=== PATIENT | male | born 1965 | race Caucasian/White ===

== ENCOUNTER 2020-04-19 14:07 | Inpatient (IN) | payer OTHER ==
[2020-04-19 15:54] VITALS: BMI 36.7
[2020-04-19] MEDS ORDERED: MAGNESIUM CITRATE 300 ML BOTTLE PO PRN (15:54)
[2020-04-19] MEDS ORDERED: MENTHOL/PHENOL 1 EACH UD MM PRN (15:54)
[2020-04-19] MEDS ORDERED: MAG HYDROX/AL HYDROX/SIMETH 30 ML UNIT-DOSE CUP PO PRN (15:54)
[2020-04-19] MEDS ORDERED: BISMUTH SUBSALICYLATE 524 MG/30 ML UD PO PRN (15:54)
[2020-04-19] MEDS ORDERED: MAGNESIUM HYDROX 2400MG/30ML ORAL SUSPENSION 30 ML CUP PO PRN (15:54)
[2020-04-19] MEDS ORDERED: METHADONE HCL 10 MG TABLET (FOR DETOX USE ONLY) PO ONE ×2 (15:54→17:00)
[2020-04-19] MEDS ORDERED: NICOTINE POLACRILEX 2 MG GUM BUC PRN (15:54)
[2020-04-19] MEDS ORDERED: ACETAMINOPHEN 325 MG TABLET (FP) PO PRN ×2 (15:54)
[2020-04-19 17:01] LABS: HEMATOCRIT 43.8 % (35.4-49); HEMOGLOBIN 14.4 GM/dL (11.7-16.9); MCH 28.6 pg (25.7-33.7); MCHC 32.8 g/dl (32.0-35.9); MEAN CELL VOLUME 87.2 fl (80-96); MEAN PLT VOLUME 7.3 fl (7.5-11.1); PLATELET COUNT 317 K/MM3 (134-434); RBC 5.02 M/mm3 (4.00-5.60); RDW 14.3 % (11.9-15.9); WHITE BLOOD COUNT 7.8 K/mm3 (4.0-10.0)
[2020-04-19 17:03] LABS: POTASSIUM 4.7 mmol/L (3.5-5.1)
[2020-04-19 17:05] LABS: ALBUMIN 3.8 g/dl (3.4-5.0); CALCIUM 9.4 mg/dL (8.5-10.1)
[2020-04-19 17:06] LABS: BLOOD UREA NITROGEN 13.3 mg/dL (7-18)
[2020-04-19 17:09] LABS: CREATININE 0.9 mg/dL (0.55-1.3)
[2020-04-19 17:10] LABS: BILIRUBIN,TOTAL 0.5 mg/dL (0.2-1); TOT PROT 8.4 g/dl (6.4-8.2)
[2020-04-19] MEDS: hydrOXYzine PAMOATE 25 MG CAPSULE (FP) PO SCH ×2 (17:45→22:43)
[2020-04-19] MEDS: MELATONIN 5 MG TABLETS PO SCH (22:43)
[2020-04-19] MEDS: THIAMINE HCL 100 MG TABLET (FP) PO SCH (22:43)
[2020-04-20] MEDS: hydrOXYzine PAMOATE 25 MG CAPSULE (FP) PO SCH ×5 (05:27→22:20)
[2020-04-20] MEDS ORDERED: METHADONE HCL 5 MG TABLET (FOR DETOX USE ONLY) ONE (08:59)
[2020-04-20] MEDS ORDERED: METHADONE HCL 10 MG TABLET (FOR DETOX USE ONLY) ONE (09:00)
[2020-04-20] MEDS ORDERED: METHADONE (DETOX) 20 MG, METHADONE (DETOX) 5 MG PO ONE (10:00)
[2020-04-20] MEDS: NICOTINE 7 MG/24 HOURS TOPICAL PATCH TD SCH (11:09)
[2020-04-20] MEDS: PRENATAL VITAMINS W/ FOLIC ACID TABLET (FP) PO SCH (11:09)
[2020-04-20] MEDS: IBUPROFEN 400 MG TABLET (FP) PO PRN (17:41)
[2020-04-20] MEDS: METHOCARBAMOL 500 MG TABLET PO PRN (22:17)
[2020-04-20] MEDS: cloNIDine HCL 0.1 MG TABLET PO PRN (22:19)
[2020-04-20] MEDS: THIAMINE HCL 100 MG TABLET (FP) PO SCH (22:20)
[2020-04-20] MEDS: MELATONIN 5 MG TABLETS PO SCH (22:20)
[2020-04-21] MEDS: hydrOXYzine PAMOATE 25 MG CAPSULE (FP) PO SCH ×5 (05:10→22:43)
[2020-04-21] MEDS: diazePAM 5 MG TABLET PO PRN ×2 (05:11→17:13)
[2020-04-21] MEDS: ONDANSETRON *ODT* 4 MG TABLET SL PRN ×2 (08:34→15:44)
[2020-04-21] MEDS ORDERED: METHADONE HCL 10 MG TABLET (FOR DETOX USE ONLY) PO ONE (10:00)
[2020-04-21] MEDS ORDERED: TRIMETHOBENZAMIDE HCL 200MG/2ML INJ IM ONE (10:58)
[2020-04-21] MEDS: PRENATAL VITAMINS W/ FOLIC ACID TABLET (FP) PO SCH (11:28)
[2020-04-21] MEDS: NICOTINE 7 MG/24 HOURS TOPICAL PATCH TD SCH (11:28)
[2020-04-21] MEDS: METHOCARBAMOL 500 MG TABLET PO PRN (13:50)
[2020-04-21] MEDS: IBUPROFEN 400 MG TABLET (FP) PO PRN (13:50)
[2020-04-21] MEDS: cloNIDine HCL 0.1 MG TABLET PO PRN (22:39)
[2020-04-21] MEDS: MELATONIN 5 MG TABLETS PO SCH (22:43)
[2020-04-21] MEDS: THIAMINE HCL 100 MG TABLET (FP) PO SCH (22:44)
[2020-04-22] MEDS: hydrOXYzine PAMOATE 25 MG CAPSULE (FP) PO SCH ×5 (06:07→22:47)
[2020-04-22] MEDS: diazePAM 5 MG TABLET PO PRN ×2 (06:08→22:46)
[2020-04-22] MEDS ORDERED: METHADONE HCL 10 MG TABLET (FOR DETOX USE ONLY) ONE (09:04)
[2020-04-22] MEDS ORDERED: METHADONE HCL 5 MG TABLET (FOR DETOX USE ONLY) ONE (09:04)
[2020-04-22] MEDS ORDERED: METHADONE (DETOX) 10 MG, METHADONE (DETOX) 5 MG PO ONE (10:00)
[2020-04-22] MEDS: PRENATAL VITAMINS W/ FOLIC ACID TABLET (FP) PO SCH (10:29)
[2020-04-22] MEDS: NICOTINE 7 MG/24 HOURS TOPICAL PATCH TD SCH (10:29)
[2020-04-22] MEDS: TRIMETHOBENZAMIDE HCL 200MG/2ML INJ IM PRN (20:48)
[2020-04-22] MEDS: MELATONIN 5 MG TABLETS PO SCH (22:47)
[2020-04-22] MEDS: THIAMINE HCL 100 MG TABLET (FP) PO SCH (22:47)
[2020-04-23] MEDS: hydrOXYzine PAMOATE 25 MG CAPSULE (FP) PO SCH ×5 (07:20→22:51)
[2020-04-23] MEDS ORDERED: METHADONE HCL 10 MG TABLET (FOR DETOX USE ONLY) PO ONE (10:00)
[2020-04-23] MEDS: PRENATAL VITAMINS W/ FOLIC ACID TABLET (FP) PO SCH (10:26)
[2020-04-23] MEDS: NICOTINE 7 MG/24 HOURS TOPICAL PATCH TD SCH (10:26)
[2020-04-23] MEDS: METHOCARBAMOL 500 MG TABLET PO PRN (12:37)
[2020-04-23] MEDS: ONDANSETRON *ODT* 4 MG TABLET SL PRN ×2 (14:07→21:31)
[2020-04-23] MEDS ORDERED: TRIMETHOBENZAMIDE HCL 200MG/2ML INJ IM PRN (14:12)
[2020-04-23] MEDS: TRIMETHOBENZAMIDE HCL 200MG/2ML INJ IM PRN (15:23)
[2020-04-23] MEDS: MELATONIN 5 MG TABLETS PO SCH (22:51)
[2020-04-23] MEDS: THIAMINE HCL 100 MG TABLET (FP) PO SCH (22:51)
[2020-04-23] MEDS ORDERED: diazePAM 5 MG TABLET PO ONE (23:00)
[2020-04-24] MEDS: METHOCARBAMOL 500 MG TABLET PO PRN (03:39)
[2020-04-24] MEDS: hydrOXYzine PAMOATE 25 MG CAPSULE (FP) PO SCH ×2 (06:00→10:28)
[2020-04-24] MEDS ORDERED: METHADONE HCL 5 MG TABLET (FOR DETOX USE ONLY) PO ONE (06:00)
[2020-04-24] MEDS: NICOTINE 7 MG/24 HOURS TOPICAL PATCH TD SCH (10:29)
[2020-04-24] MEDS: PRENATAL VITAMINS W/ FOLIC ACID TABLET (FP) PO SCH (10:29)
[2020-04-24 13:16] VITALS: BP 136/85; PULSE 87; TEMP 97.5
== END 2020-04-24 13:12 | disposition other institution (70) | DRG 774 ==
LOC: YASAS 14:07 → Y6N 15:37
PROVIDERS: ADMIT Allergy & Immunology; ATTEND Allergy & Immunology
PROC: HZ2ZZZZ Detoxification Services for Substance Abuse Treatment (ICD-10-PCS; principal; 2020-04-19)
DX: F10.230 Alcohol dependence with withdrawal, uncomplicated (principal); F14.20 Cocaine dependence, uncomplicated; F17.210 Nicotine dependence, cigarettes, uncomplicated; R00.0 Tachycardia, unspecified; R73.9 Hyperglycemia, unspecified; R25.1 Tremor, unspecified; S09.90XA Unspecified injury of head, initial encounter; S01.01XA Laceration without foreign body of scalp, initial encounter; W07.XXXA Fall from chair, initial encounter; Y93.89 Activity, other specified; Y92.238 Other place in hospital as the place of occurrence of the external cause
CPT/HCPCS: 36415; 80053; 82947; 85027; 86780; 93005; 93010; C9803; J0735; Q0162; U0003

== ENCOUNTER 2020-04-23 22:29 | Emergency (ER) | payer OTHER ==
[2020-04-23 23:14] VITALS: BP 147/94; PULSE 100; TEMP 98.1; BMI 35.6
[2020-04-23] MEDS ORDERED: DIPHTH,PERTUSS(ACELL),TET 0.5 ML DISP.SYRIN IM ONE ×2 (23:19→23:38)
[2020-04-23] MEDS ORDERED: LIDOCAINE HCL 1%, 10 MG/ML (50 mL VIAL) SQ ONE (23:35)
[2020-04-23] MEDS ORDERED: LIDOCAINE HCL 1%, 10 MG/ML (20ML VIAL) ONE (23:38)
[2020-04-24] MEDS ORDERED: ACETAMINOPHEN 325 MG TABLET (FP) PO ONE (00:14)
[2020-04-24] MEDS ORDERED: BACITRACIN 15 GM TUBE TOPICAL OINTMENT TP ONE (00:28)
[2020-04-24] MEDS ORDERED: BACITRACIN 0.9 GM PACKET ONE (00:30)
[2020-04-24] MEDS ORDERED: ACETAMINOPHEN 325 MG TABLET (FP) ONE (00:40)
== END 2020-04-24 03:01 | disposition home or self-care (01) ==
LOC: JER 22:29
PROC: 3E0234Z Introduction of Serum, Toxoid and Vaccine into Muscle, Percutaneous Approach (ICD-10-PCS; principal; 2020-04-23)
PROC: 0HQ0XZZ Repair Scalp Skin, External Approach (ICD-10-PCS; principal; 2020-04-23)
DX: S01.01XA Laceration without foreign body of scalp, initial encounter (principal); W07.XXXA Fall from chair, initial encounter; W22.8XXA Striking against or struck by other objects, initial encounter
CPT/HCPCS: 70450-TC; 72125-TC; 90715; 99284-25

== ENCOUNTER 2020-04-24 13:33 | Inpatient (IN) | payer OTHER ==
[2020-04-24] MEDS ORDERED: ACETAMINOPHEN 325 MG TABLET (FP) PO PRN (15:14)
[2020-04-24] MEDS ORDERED: guaiFENesin 200 MG/10 ML 10 ML UNIT-DOSE CUPS PO PRN (15:14)
[2020-04-24] MEDS ORDERED: IBUPROFEN 400 MG TABLET (FP) PO PRN (15:14)
[2020-04-24] MEDS ORDERED: LOPERAMIDE HCL 2 MG CAPSULE PO PRN (15:14)
[2020-04-24] MEDS ORDERED: MAG HYDROX/AL HYDROX/SIMETH 30 ML UNIT-DOSE CUP PO PRN (15:14)
[2020-04-24] MEDS ORDERED: MAGNESIUM CITRATE 300 ML BOTTLE PO PRN (15:14)
[2020-04-24] MEDS ORDERED: P-EPHED 60MG/TRIPROLIDI 2.5MG TABLET PO PRN (15:14)
[2020-04-24] MEDS ORDERED: MENTHOL/PHENOL 1 EACH UD MM PRN (15:14)
[2020-04-24] MEDS ORDERED: NICOTINE POLACRILEX 2 MG GUM BUC PRN (15:14)
[2020-04-24] MEDS ORDERED: MAGNESIUM HYDROX 2400MG/30ML ORAL SUSPENSION 30 ML CUP PO PRN (15:14)
[2020-04-24] MEDS: hydrOXYzine PAMOATE 25 MG CAPSULE (FP) PO PRN ×2 (16:08→21:31)
[2020-04-24] MEDS: METHOCARBAMOL 500 MG TABLET PO SCH ×2 (17:57→21:31)
[2020-04-24] MEDS: MELATONIN 5 MG TABLETS PO SCH (21:30)
[2020-04-24] MEDS: THIAMINE HCL 100 MG TABLET (FP) PO SCH (21:31)
[2020-04-25] MEDS ORDERED: ONDANSETRON *ODT* 4 MG TABLET SL PRN (06:17)
[2020-04-25] MEDS ORDERED: ROCURONIUM BROMIDE 100 MG/10 ML VIAL ONE (07:47)
[2020-04-25] MEDS ORDERED: LIDOCAINE HCL/PF 2% SDV 5ML VIAL ONE (07:47)
[2020-04-25] MEDS ORDERED: EPHEDRINE SULFATE/0.9% NACL/PF 50 MG/10 ML SYRINGE NR ONE (07:47)
[2020-04-25] MEDS ORDERED: ePHEDrine SULFATE 50 MG/1 ML AMPULE ONE (07:47)
[2020-04-25] MEDS ORDERED: GLYCOPYRROLATE 0.2 MG/1 ML VIAL ONE (07:47)
[2020-04-25] MEDS ORDERED: PROPOFOL 20 ML ONE ×3 (07:47)
[2020-04-25] MEDS ORDERED: MIDAZOLAM HCL 2 MG/2 ML SINGLE DOSE VIAL ONE (07:47)
[2020-04-25] MEDS ORDERED: LIDOCAINE HCL 2% JELLY (5 ML/TUBE) ONE (07:56)
[2020-04-25] MEDS ORDERED: HYDROmorphone HCl 2 MG/ML VIAL ONE (08:19)
[2020-04-25] MEDS ORDERED: ONDANSETRON 4 MG/2 ML VIAL IM ONE (09:21)
[2020-04-25] MEDS: METHOCARBAMOL 500 MG TABLET PO SCH ×4 (09:54→23:36)
[2020-04-25] MEDS ORDERED: NICOTINE 7 MG/24 HOURS TOPICAL PATCH TD SCH (10:00)
[2020-04-25] MEDS ORDERED: PRENATAL VITAMINS W/ FOLIC ACID TABLET (FP) PO SCH (10:00)
[2020-04-25] MEDS ORDERED: BACITRACIN 0.9 GM PACKET TP SCH (10:00)
[2020-04-25] MEDS: LACTULOSE 20 GM/30 ML UDC (FOR ORAL USE ONLY) PO SCH ×2 (15:07→23:35)
[2020-04-25 17:40] VITALS: BP 125/77; PULSE 122; TEMP 97.7
[2020-04-25] MEDS: MELATONIN 5 MG TABLETS PO SCH (23:36)
[2020-04-25] MEDS: THIAMINE HCL 100 MG TABLET (FP) PO SCH (23:37)
[2020-04-26] MEDS: LACTULOSE 20 GM/30 ML UDC (FOR ORAL USE ONLY) PO SCH (07:14)
== END 2020-04-26 07:20 | disposition short-term general hospital (02) | DRG 772 ==
LOC: YASAS 13:33 → Y5N 13:35
PROVIDERS: ADMIT Allergy & Immunology; ATTEND Allergy & Immunology
PROC: HZ42ZZZ Group Counseling for Substance Abuse Treatment, Cognitive-Behavioral (ICD-10-PCS; principal; 2020-04-24)
DX: F10.20 Alcohol dependence, uncomplicated (principal); F14.20 Cocaine dependence, uncomplicated; F17.210 Nicotine dependence, cigarettes, uncomplicated; E72.20 Disorder of urea cycle metabolism, unspecified; R11.2 Nausea with vomiting, unspecified; R19.7 Diarrhea, unspecified; R53.1 Weakness; R53.83 Other fatigue; R61 Generalized hyperhidrosis; R42 Dizziness and giddiness; R15.9 Full incontinence of feces; S01.01XD Laceration without foreign body of scalp, subsequent encounter; W07.XXXD Fall from chair, subsequent encounter
CPT/HCPCS: 82140; 82962; Q0162

== ENCOUNTER 2020-04-25 18:36 | Inpatient (IN) | payer OTHER ==
[2020-04-25 19:05] VITALS: BMI 35.6
[2020-04-25] MEDS ORDERED: LACTATED RINGERS SOLUTION 1000 ML INFUS.BAG IV ONE (19:36)
[2020-04-25] MEDS ORDERED: FAMOTIDINE 20 MG/50 ML IVPB 20 MG/50 ML MG IVPB ONE ×2 (20:01→20:19)
[2020-04-25 21:12] LABS: CHLORIDE 103 mmol/L (98-107); POTASSIUM 4.1 mmol/L (3.5-5.1); SODIUM 136 mmol/L (136-145)
[2020-04-25 21:14] LABS: CALCIUM 9.3 mg/dL (8.5-10.1)
[2020-04-25 21:15] LABS: ANION GAP 11 MMOL/L (8-16); BLOOD UREA NITROGEN 27.2 mg/dL (7-18); CO2 22 mmol/L (21-32); GLUCOSE,RANDOM 105 mg/dL (74-106); LIPASE 254 U/L (73-393)
[2020-04-25 21:18] LABS: CREATININE 1.2 mg/dL (0.55-1.3); SGOT/AST 67 U/L (15-37); SGPT/ALT 116 U/L (13-61)
[2020-04-25 21:20] LABS: BILIRUBIN,TOTAL 1.4 mg/dL (0.2-1); TOT PROT 8.6 g/dl (6.4-8.2)
[2020-04-25 21:21] LABS: ALK PHOS 109 U/L (45-117)
[2020-04-25 21:26] LABS: BASO % 0.3 % (0-2.0); EOS % 0.6 % (0-4.5); HEMATOCRIT 48.8 % (35.4-49); HEMOGLOBIN 16.8 GM/dL (11.7-16.9); LYMPH % 17.5 % (8-40); MCH 29.4 pg (25.7-33.7); MCHC 34.4 g/dl (32.0-35.9); MEAN CELL VOLUME 85.2 fl (80-96); MEAN PLT VOLUME 7.6 fl (7.5-11.1); MONO % 11.8 % (3.8-10.2); NEUT % 69.8 % (42.8-82.8); PLATELET COUNT 409 K/MM3 (134-434); RBC 5.73 M/mm3 (4.00-5.60); RDW 14.4 % (11.9-15.9); WHITE BLOOD COUNT 15.6 K/mm3 (4.0-10.0)
[2020-04-25 21:58] LABS: MAGNESIUM 2.6 mg/dL (1.8-2.4)
[2020-04-26] MEDS ORDERED: PANTOPRAZOLE SODIUM 40 MG VIAL IVPUSH ONE (01:34)
[2020-04-26] MEDS ORDERED: PANTOPRAZOLE SODIUM 40 MG VIAL ONE (02:27)
[2020-04-26] MEDS ORDERED: AMOX TR/POT CLAV 875MG/125MG TABLETS (FP) PO ONE (03:04)
[2020-04-26] MEDS ORDERED: AMOX TR/POT CLAV 875MG/125MG TABLETS (FP) ONE (03:37)
[2020-04-26] MEDS: SODIUM CHLORIDE 1,000 ML IV SCH (05:26)
[2020-04-26 06:52] LABS: INR 1.14 (0.83-1.09)
[2020-04-26 07:03] LABS: BASO % 0.4 % (0-2.0); EOS % 0.4 % (0-4.5); HEMATOCRIT 47.3 % (35.4-49); HEMOGLOBIN 15.7 GM/dL (11.7-16.9); LYMPH % 16.1 % (8-40); MCH 28.6 pg (25.7-33.7); MCHC 33.1 g/dl (32.0-35.9); MEAN CELL VOLUME 86.4 fl (80-96); MEAN PLT VOLUME 7.5 fl (7.5-11.1); MONO % 11.4 % (3.8-10.2); NEUT % 71.7 % (42.8-82.8); PLATELET COUNT 375 K/MM3 (134-434); RBC 5.47 M/mm3 (4.00-5.60); RDW 13.9 % (11.9-15.9); WHITE BLOOD COUNT 15.3 K/mm3 (4.0-10.0)
[2020-04-26] MEDS ORDERED: METHADONE HCL 10 MG TABLET ONE (09:31)
[2020-04-26] MEDS ORDERED: PANTOPRAZOLE 40 MG TABLET ONE (09:31)
[2020-04-26] MEDS ORDERED: ASPIRIN COATED 81 MG TABLET.EC ONE (09:31)
[2020-04-26] MEDS ORDERED: PT OWN MED DRAWER 7, Y5N ONE (09:33)
[2020-04-26] MEDS ORDERED: PIPERACILLIN/TAZOB 3.375 GM 3.375 GM/50 ML BAG IVPB ONE (09:33)
[2020-04-26] MEDS ORDERED: METHADONE HCL 5 MG TABLET PO ONE (10:00)
[2020-04-26] MEDS: PANTOPRAZOLE 40 MG TABLET PO SCH (10:01)
[2020-04-26] MEDS: PIPERACILLIN/TAZOB 3.375 GM 3.375 GM in DEXTROSE 5%-WATER - 50 ML IVPB SCH ×2 (10:01→18:13)
[2020-04-26] MEDS: ASPIRIN COATED 81 MG TABLET.EC PO SCH (10:01)
[2020-04-27] MEDS ORDERED: PIPERACILLIN/TAZOB 3.375 GM 3.375 GM/50 ML BAG IVPB ONE (02:08)
[2020-04-27] MEDS: PIPERACILLIN/TAZOB 3.375 GM 3.375 GM in DEXTROSE 5%-WATER - 50 ML IVPB SCH (02:23)
[2020-04-27] MEDS: SODIUM CHLORIDE 1,000 ML IV SCH (06:41)
[2020-04-27 06:51] LABS: CHLORIDE 106 mmol/L (98-107); POTASSIUM 3.8 mmol/L (3.5-5.1); SODIUM 138 mmol/L (136-145)
[2020-04-27 06:52] LABS: BASO % 0.4 % (0-2.0); EOS % 1.3 % (0-4.5); HEMATOCRIT 44.2 % (35.4-49); HEMOGLOBIN 14.9 GM/dL (11.7-16.9); LYMPH % 21.4 % (8-40); MCHC 33.7 g/dl (32.0-35.9); MEAN CELL VOLUME 86.1 fl (80-96); MEAN PLT VOLUME 7.4 fl (7.5-11.1); MONO % 9.3 % (3.8-10.2); NEUT % 67.6 % (42.8-82.8); PLATELET COUNT 369 K/MM3 (134-434); RBC 5.13 M/mm3 (4.00-5.60); WHITE BLOOD COUNT 12.1 K/mm3 (4.0-10.0)
[2020-04-27 06:56] LABS: GAMMA GLUTAMYL TRANSPEPTIDASE 78 U/L (5-85); MAGNESIUM 2.7 mg/dL (1.8-2.4)
[2020-04-27 06:57] LABS: CALCIUM 8.9 mg/dL (8.5-10.1)
[2020-04-27 06:58] LABS: ALBUMIN 3.6 g/dl (3.4-5.0); AMYLASE 115 U/L (25-115); ANION GAP 11 MMOL/L (8-16); CO2 21 mmol/L (21-32); GLUCOSE,RANDOM 100 mg/dL (74-106)
[2020-04-27 06:59] LABS: CREATININE 1.2 mg/dL (0.55-1.3); LIPASE 596 U/L (73-393); SGOT/AST 27 U/L (15-37); SGPT/ALT 76 U/L (13-61)
[2020-04-27 07:01] LABS: PHOSPHOROUS 4.3 mg/dL (2.5-4.9)
[2020-04-27 07:03] LABS: ALK PHOS 97 U/L (45-117); BILIRUBIN,TOTAL 1.3 mg/dL (0.2-1); TOT PROT 7.5 g/dl (6.4-8.2)
[2020-04-27] MEDS ORDERED: PANTOPRAZOLE 40 MG TABLET ONE (09:39)
[2020-04-27] MEDS ORDERED: ASPIRIN 81 MG CHEWABLE TABLETS ONE (09:39)
[2020-04-27] MEDS: PANTOPRAZOLE 40 MG TABLET PO SCH (09:53)
[2020-04-27] MEDS: ASPIRIN COATED 81 MG TABLET.EC PO SCH (09:53)
[2020-04-27] MEDS ORDERED: PIPERACILLIN/TAZOB 3.375 GM 3.375 GM in DEXTROSE 5%-WATER - 50 ML IVPB SCH (10:00)
[2020-04-27] MEDS: AMOX TR/POT CLAV 875MG/125MG TABLETS (FP) PO SCH (17:39)
[2020-04-28 07:44] LABS: POTASSIUM 4.2 mmol/L (3.5-5.1)
[2020-04-28 07:53] LABS: ALBUMIN 3.4 g/dl (3.4-5.0)
[2020-04-28 07:54] LABS: BLOOD UREA NITROGEN 18.9 mg/dL (7-18); CALCIUM 8.7 mg/dL (8.5-10.1); MAGNESIUM 2.7 mg/dL (1.8-2.4)
[2020-04-28 07:56] LABS: CREATININE 1.2 mg/dL (0.55-1.3); PHOSPHOROUS 3.9 mg/dL (2.5-4.9)
[2020-04-28 07:58] LABS: BILIRUBIN,TOTAL 0.8 mg/dL (0.2-1); TOT PROT 7.1 g/dl (6.4-8.2)
[2020-04-28 08:11] LABS: BASO % 0.5 % (0-2.0); EOS % 1.5 % (0-4.5); HEMATOCRIT 41.1 % (35.4-49); HEMOGLOBIN 14.3 GM/dL (11.7-16.9); LYMPH % 20.2 % (8-40); MCH 29.8 pg (25.7-33.7); MCHC 34.7 g/dl (32.0-35.9); MEAN CELL VOLUME 85.7 fl (80-96); MEAN PLT VOLUME 7.4 fl (7.5-11.1); MONO % 9.4 % (3.8-10.2); NEUT % 68.4 % (42.8-82.8); PLATELET COUNT 354 K/MM3 (134-434); RDW 13.9 % (11.9-15.9)
[2020-04-28] MEDS: PANTOPRAZOLE 40 MG TABLET PO SCH (10:16)
[2020-04-28] MEDS: ASPIRIN COATED 81 MG TABLET.EC PO SCH (10:16)
[2020-04-28] MEDS: AMOX TR/POT CLAV 875MG/125MG TABLETS (FP) PO SCH ×2 (10:16→17:30)
[2020-04-28 11:16] VITALS: BP 132/66; PULSE 84; TEMP 97.8
[2020-04-28 19:06] LABS: HEP B CORE AB, TOT Positive (Negative)
== END 2020-04-28 18:41 | disposition other institution (70) | DRG 241 ==
LOC: JER 18:36 → JERBED 04-26 01:38 → J4W 04-27 11:11
PROVIDERS: ADMIT Internal Medicine; ATTEND Internal Medicine
DX: K29.80 Duodenitis without bleeding (principal); N17.9 Acute kidney failure, unspecified; M62.82 Rhabdomyolysis; F19.10 Other psychoactive substance abuse, uncomplicated; E86.0 Dehydration; K76.0 Fatty (change of) liver, not elsewhere classified; F32.9 Major depressive disorder, single episode, unspecified; R74.01 Elevation of levels of liver transaminase levels; F17.210 Nicotine dependence, cigarettes, uncomplicated
CPT/HCPCS: 36415; 71045-TC-FY; 74176-TC; 76705-TC; 80053; 82150; 82550; 82553; 82728; 82977; 83516; 83540; 83550; 83690; 83735; 84100; 84484; 85025; 85610; 86038; 86140; 86301; 86704; 86706; 86707; 86708; 86709; 86803; 87040; 87340; 87902; 93005; 93010; 93306-TC; 99285-25; C9803; U0003

== ENCOUNTER 2020-04-28 18:43 | Inpatient (IN) | payer OTHER ==
[2020-04-28 19:25] VITALS: BMI 33.0
[2020-04-28] MEDS ORDERED: guaiFENesin 200 MG/10 ML 10 ML UNIT-DOSE CUPS PO PRN (19:30)
[2020-04-28] MEDS ORDERED: MAG HYDROX/AL HYDROX/SIMETH 30 ML UNIT-DOSE CUP PO PRN (19:30)
[2020-04-28] MEDS ORDERED: MAGNESIUM HYDROX 2400MG/30ML ORAL SUSPENSION 30 ML CUP PO PRN (19:30)
[2020-04-28] MEDS ORDERED: P-EPHED 60MG/TRIPROLIDI 2.5MG TABLET PO PRN (19:30)
[2020-04-28] MEDS ORDERED: IBUPROFEN 400 MG TABLET (FP) PO PRN (19:30)
[2020-04-28] MEDS ORDERED: ACETAMINOPHEN 325 MG TABLET (FP) PO PRN (19:30)
[2020-04-28] MEDS ORDERED: MENTHOL/PHENOL 1 EACH UD MM PRN (19:30)
[2020-04-28] MEDS ORDERED: MAGNESIUM CITRATE 300 ML BOTTLE PO PRN (19:30)
[2020-04-28] MEDS ORDERED: LOPERAMIDE HCL 2 MG CAPSULE PO PRN (19:30)
[2020-04-28] MEDS: MELATONIN 5 MG TABLETS PO SCH (22:17)
[2020-04-28] MEDS: THIAMINE HCL 100 MG TABLET (FP) PO SCH (22:17)
[2020-04-28] MEDS: hydrOXYzine PAMOATE 25 MG CAPSULE (FP) PO PRN (22:17)
[2020-04-29] MEDS: AMOX TR/POT CLAV 875MG/125MG TABLETS (FP) PO SCH ×2 (07:43→17:58)
[2020-04-29] MEDS: PRENATAL VITAMINS W/ FOLIC ACID TABLET (FP) PO SCH (10:14)
[2020-04-29] MEDS: PANTOPRAZOLE 40 MG TABLET PO SCH (10:14)
[2020-04-29] MEDS: hydrOXYzine PAMOATE 25 MG CAPSULE (FP) PO PRN (21:57)
[2020-04-29] MEDS: THIAMINE HCL 100 MG TABLET (FP) PO SCH (21:57)
[2020-04-29] MEDS: MELATONIN 5 MG TABLETS PO SCH (21:57)
[2020-04-30] MEDS: AMOX TR/POT CLAV 875MG/125MG TABLETS (FP) PO SCH ×2 (07:24→17:47)
[2020-04-30] MEDS: PRENATAL VITAMINS W/ FOLIC ACID TABLET (FP) PO SCH (09:53)
[2020-04-30] MEDS: PANTOPRAZOLE 40 MG TABLET PO SCH (09:53)
[2020-04-30] MEDS: hydrOXYzine PAMOATE 25 MG CAPSULE (FP) PO PRN (21:23)
[2020-04-30] MEDS: MELATONIN 5 MG TABLETS PO SCH (21:23)
[2020-04-30] MEDS: THIAMINE HCL 100 MG TABLET (FP) PO SCH (21:23)
[2020-05-01] MEDS: AMOX TR/POT CLAV 875MG/125MG TABLETS (FP) PO SCH ×2 (07:17→17:32)
[2020-05-01] MEDS: PRENATAL VITAMINS W/ FOLIC ACID TABLET (FP) PO SCH (09:34)
[2020-05-01] MEDS: PANTOPRAZOLE 40 MG TABLET PO SCH (09:35)
[2020-05-01] MEDS: THIAMINE HCL 100 MG TABLET (FP) PO SCH (21:42)
[2020-05-01] MEDS: MELATONIN 5 MG TABLETS PO SCH (21:42)
[2020-05-02] MEDS: AMOX TR/POT CLAV 875MG/125MG TABLETS (FP) PO SCH ×2 (07:06→17:38)
[2020-05-02] MEDS: PRENATAL VITAMINS W/ FOLIC ACID TABLET (FP) PO SCH (09:41)
[2020-05-02] MEDS: PANTOPRAZOLE 40 MG TABLET PO SCH (09:42)
[2020-05-02] MEDS: hydrOXYzine PAMOATE 25 MG CAPSULE (FP) PO PRN ×2 (17:40→21:15)
[2020-05-02] MEDS: THIAMINE HCL 100 MG TABLET (FP) PO SCH (21:15)
[2020-05-02] MEDS: MELATONIN 5 MG TABLETS PO SCH (21:15)
[2020-05-03] MEDS: AMOX TR/POT CLAV 875MG/125MG TABLETS (FP) PO SCH ×2 (07:14→18:06)
[2020-05-03] MEDS: PRENATAL VITAMINS W/ FOLIC ACID TABLET (FP) PO SCH (09:51)
[2020-05-03] MEDS: PANTOPRAZOLE 40 MG TABLET PO SCH (09:51)
[2020-05-03] MEDS: MELATONIN 5 MG TABLETS PO SCH (21:27)
[2020-05-03] MEDS: THIAMINE HCL 100 MG TABLET (FP) PO SCH (21:27)
[2020-05-03] MEDS: hydrOXYzine PAMOATE 25 MG CAPSULE (FP) PO PRN (21:27)
[2020-05-03] MEDS ORDERED: SUVOREXANT 10 MG TABLET PO PRN (22:00)
[2020-05-04 06:42] VITALS: BP 123/73; PULSE 99; TEMP 97.7
[2020-05-04] MEDS: PRENATAL VITAMINS W/ FOLIC ACID TABLET (FP) PO SCH (10:00)
[2020-05-04] MEDS: PANTOPRAZOLE 40 MG TABLET PO SCH (10:00)
== END 2020-05-04 11:25 | disposition home or self-care (01) | DRG 772 ==
LOC: YASAS 18:43 → Y5N 19:36
PROVIDERS: ADMIT Allergy & Immunology; ATTEND Allergy & Immunology
PROC: HZ42ZZZ Group Counseling for Substance Abuse Treatment, Cognitive-Behavioral (ICD-10-PCS; principal; 2020-04-28)
DX: F11.20 Opioid dependence, uncomplicated (principal); F14.20 Cocaine dependence, uncomplicated; F17.210 Nicotine dependence, cigarettes, uncomplicated; F19.282 Other psychoactive substance dependence with psychoactive substance-induced sleep disorder; F19.280 Other psychoactive substance dependence with psychoactive substance-induced anxiety disorder; D72.829 Elevated white blood cell count, unspecified; K80.20 Calculus of gallbladder without cholecystitis without obstruction; R10.13 Epigastric pain; R94.5 Abnormal results of liver function studies; R94.31 Abnormal electrocardiogram [ECG] [EKG]; R93.5 Abnormal findings on diagnostic imaging of other abdominal regions, including retroperitoneum; Z56.0 Unemployment, unspecified